=== PATIENT | male | born 1940 | race Caucasian/White ===

== ENCOUNTER → 2019-06-20 | Day surgery (SDC) | payer OTHER ==
[~2019-06-20] VITALS: Ht 180.3 cm; Wt 106.4 kg
[2019-06-20] VITALS (9 sets, daily range): BP systolic 124–155; BP diastolic 58–95
[~2019-06-20] MED LIST: ALFU10TA10 PO; AMLO5TAB PO; ASPI-611 PO; ATOR80TA PO; CHOL100017; FINA5TAB11 PO; FOLIC ACID PO; HYDROcodone/acetaminophen 10/325mg tab PO PRN; HYDROcodone/acetaminophen 5mg/325mg tablet PO PRN; LIDOcaine 1% (10mg/ml)w/preservative injection 20ml MDV ONE; LINA5TAB4 PO; LORazepam 0.5 MG tablet PO PRN; LOSA100T57 PO; METF750T46 PO; METH2.5T PO; METO50TA7 PO; diphenhydrAMINE 25mg capsule PO PRN; fentaNYL/PF 50MCG/1 ML 2ML syringe ONE; hydrALAZINE 20mg/ml inj. IV ONE; iohexol 350MG/ML 100ml bottle IV ONE; midazolam 2 mg/2 ml injection ONE; normal saline 1,000 ML IV SCH; normal saline 1000ml 1,000 ML IV SCH
--- NOTE | 2019-06-20 20:10 | NUR ---
Received bedside report from DARIAN Masterson quality control lab technician nurse. Patient VS stable. Right groin Cath site dressing clean and dry. no hematoma. dorsalis pedal pulses equal and strong bilaterally Patients at bedside with all known belongings. Will continue to monitor.
--- NOTE | 2019-06-20 22:45 | NUR ---
Patient was discharged. IV removed, tip intact, Patient tolerated well. Patient transported via wheel chair to Private motor vehicle driven by his . Went over discharge instructions with patient and his , All questions answered. VS stable. Right groin site dressing is clean dry and intact, no hematoma. Dorsal pedal pulses equal and strong bilaterally.
== END | disposition home or self-care (01) ==
LOC: SSTAY O 12:57
PROVIDERS: ATTEND Internal Medicine Interventional Cardiology
DX: R07.9 Chest pain, unspecified (principal); I25.10 Atherosclerotic heart disease of native coronary artery without angina pectoris; I48.91 Unspecified atrial fibrillation; E11.22 Type 2 diabetes mellitus with diabetic chronic kidney disease; I12.9 Hypertensive chronic kidney disease with stage 1 through stage 4 chronic kidney disease, or unspecified chronic kidney disease; N18.9 Chronic kidney disease, unspecified; E78.5 Hyperlipidemia, unspecified; I48.0 Paroxysmal atrial fibrillation; I25.2 Old myocardial infarction; E66.9 Obesity, unspecified; Z68.32 Body mass index [BMI] 32.0-32.9, adult; Z95.5 Presence of coronary angioplasty implant and graft; Z85.528 Personal history of other malignant neoplasm of kidney; Z88.8 Allergy status to other drugs, medicaments and biological substances
CPT/HCPCS: 82948; 93005; 93458; 99152; 99153; C1769; J0360; J1644; J2001; J2250; J3010; J7030; Q0163; Q9967; A4620; A6258; C1760

== ENCOUNTER 2024-08-02 06:53 | Day surgery (SDC) | payer OTHER ==
[~2024-08-02] VITALS: Ht 180.3 cm; Wt 108.7 kg
[2024-08-02] VITALS (7 sets, daily range): BP systolic 138–150; BP diastolic 75–102; PULSE 53–77; RESP 12–15; TEMP 98.5; O2SAT 92–96
[~2024-08-02 06:53] MED LIST changes: -ALFU10TA10 PO; +ALFU10TA47 PO; +ATOR-429 PO; -ATOR80TA PO; -HYDROcodone/acetaminophen 10/325mg tab PO PRN; -HYDROcodone/acetaminophen 5mg/325mg tablet PO PRN; -LIDOcaine 1% (10mg/ml)w/preservative injection 20ml MDV ONE; -LORazepam 0.5 MG tablet PO PRN; -LOSA100T57 PO; +LOSA100T58 PO; -diphenhydrAMINE 25mg capsule PO PRN; -fentaNYL/PF 50MCG/1 ML 2ML syringe ONE; -hydrALAZINE 20mg/ml inj. IV ONE; -iohexol 350MG/ML 100ml bottle IV ONE; -midazolam 2 mg/2 ml injection ONE; -normal saline 1,000 ML IV SCH; -normal saline 1000ml 1,000 ML IV SCH
[2024-08-02] MEDS ORDERED: GABA-530 PO (07:46)
[2024-08-02] MEDS ORDERED: AMI200T PO (07:46)
[2024-08-02] MEDS ORDERED: insulin SUBCUT (07:46)
[2024-08-02] MEDS ORDERED: ASPI-1265 PO (07:46)
[2024-08-02] MEDS ORDERED: AMLO10TA5 PO (07:46)
[2024-08-02] MEDS ORDERED: EMPA1TAB7 PO (07:46)
[2024-08-02] MEDS ORDERED: LEVO50TA PO (07:46)
[2024-08-02] MEDS ORDERED: CYAN500T71 PO (07:46)
[2024-08-02] MEDS ORDERED: FLO0.4C PO (07:46)
[2024-08-02] MEDS ORDERED: ROSU10TA72 PO (07:46)
[2024-08-02] MEDS ORDERED: CARV-49 PO (07:46)
[2024-08-02] MEDS ORDERED: TELM80TA9 PO (07:46)
[2024-08-02] MEDS: normal saline 1,000 ML IV SCH (08:14)
[2024-08-02] MEDS: diphenhydrAMINE 25mg capsule PO PRN (08:14)
[2024-08-02] MEDS: LORazepam 0.5 MG tablet PO PRN (08:14)
[2024-08-02] MEDS ORDERED: LIDOcaine 1% (10mg/ml) 2ml vial ONE (09:24)
[2024-08-02] MEDS ORDERED: verapamil 2.5 mg/ml inj IV ONE (09:25)
[2024-08-02] MEDS ORDERED: heparin 1,000unit/ml 10ml vial 10 ML ONE (09:25)
[2024-08-02] MEDS ORDERED: midazolam 1 mg/ML 2ml injection ONE (09:25)
[2024-08-02] MEDS ORDERED: fentaNYL/PF 50MCG/1 ML 2ML syringe ONE (09:25)
[2024-08-02] MEDS ORDERED: iohexol 350MG/ML 100ml bottle IV ONE (09:25)
[2024-08-02] MEDS ORDERED: DOBUTamine-DoBUTrex 500mg/D5W 250 ML IV ONE (09:27)
[2024-08-02] MEDS ORDERED: nitroGLYCERIN 500mcg/5mL D5W 5 ML IV ONE (09:52)
[2024-08-02] MEDS ORDERED: LIDOcaine 1% 30ml preserv. free vial ONE (09:57)
[2024-08-02] MEDS ORDERED: HYDROcodone/acetaminophen 10/325mg tab PO PRN (11:55)
[2024-08-02] MEDS ORDERED: HYDROcodone/acetaminophen 5mg/325mg tablet PO PRN (11:55)
[2024-08-03 11:41] LABS: ISTAT HGB MIX 13.9 g/dl (14.0-17.9); ISTAT Hct MIX 41 %PCV (42-52); ISTAT O2 SATURATION MIX VENOUS 89 % (60-80); ISTAT SOURCE BLNK
[2024-08-03 11:43] LABS: ISTAT HGB MIX 14.6 g/dl (14.0-17.9); ISTAT Hct MIX 43 %PCV (42-52); ISTAT O2 SATURATION MIX VENOUS 58 % (60-80); ISTAT SOURCE BLNK
== END 2024-08-02 13:00 | disposition home or self-care (01) ==
LOC: SSTAY O 06:53
PROVIDERS: ATTEND Internal Medicine Interventional Cardiology
DX: I35.0 Nonrheumatic aortic (valve) stenosis (principal); I25.10 Atherosclerotic heart disease of native coronary artery without angina pectoris; E78.5 Hyperlipidemia, unspecified; E11.22 Type 2 diabetes mellitus with diabetic chronic kidney disease; I48.91 Unspecified atrial fibrillation; I71.40 Abdominal aortic aneurysm, without rupture, unspecified; Z79.899 Other long term (current) drug therapy; I12.9 Hypertensive chronic kidney disease with stage 1 through stage 4 chronic kidney disease, or unspecified chronic kidney disease; Z98.890 Other specified postprocedural states; M54.12 Radiculopathy, cervical region; Z88.8 Allergy status to other drugs, medicaments and biological substances
CPT/HCPCS: 82803; 85014; 93005; 93460; 99152; 99153; J1250; J1644; J2003; J2250; J3010; J3490; J7030; Q0163; Q9967; A6258; C1751; C1760; C1769; C1887; C1894

== ENCOUNTER 2024-09-01 09:36 | Outpatient (CLI) | payer OTHER ==
[~2024-09-01 09:36] MED LIST changes: -ALFU10TA47 PO; +AMI200T PO; +AMLO10TA5 PO; -AMLO5TAB PO; +ASPI-1265 PO; -ASPI-611 PO; -ATOR-429 PO; +CARV-49 PO; +CYAN500T71 PO; +EMPA1TAB7 PO; -FINA5TAB11 PO; +FLO0.4C PO; +GABA-530 PO; +IODIXANOL 320 MG/ML INFUS..BTL 100ML IV ONE; +LEVO50TA PO; -LINA5TAB4 PO; -LOSA100T58 PO; -METF750T46 PO; -METH2.5T PO; -METO50TA7 PO; +ROSU10TA72 PO; +TELM80TA9 PO; +insulin SUBCUT
[2024-09-01 10:21] LABS: BASOPHILS # (AUTO) 0.1 X10'3 (0-0.2); BASOPHILS % (AUTO) 1.1 % (0-1); EOSINOPHILS # (AUTO) 0.2 X10'3 (0-0.9); EOSINOPHILS % (AUTO) 3.2 % (0-6); HEMATOCRIT 44.7 % (42.0-52.0); HEMOGLOBIN 14.8 g/dl (14.0-17.9); MEAN CORPUSCULAR HEMOGLOBIN 29.5 PG (27.0-31.0); MEAN CORPUSCULAR HGB CONC 33.2 g/dL (33.0-36.5); MEAN CORPUSCULAR VOLUME 88.9 FL (78-98); MEAN PLATELET VOLUME 8.4 FL (7.4-10.4); MONOCYTES # (AUTO) 0.6 X10'3 (0-0.9); MONOCYTES % (AUTO) 9.4 % (2-12); NEUTROPHILS # (AUTO) 4.5 X10'3 (1.8-7.7); NEUTROPHILS % (AUTO) 70.3 % (42-75); PLATELET COUNT 215 X10'3 (140-440); RED BLOOD COUNT 5.03 X10'6 (4.70-6.10); RED CELL DISTRIBUTION WIDTH 14.1 % (11.5-14.5); WHITE BLOOD COUNT 6.4 X10'3 (4.5-11.0)
[2024-09-01 10:33] LABS: APTT 26 SECONDS (22-32); PROTHROMBIN TIME 10.6 SECONDS (9.0-12.0)
[2024-09-01 10:36] LABS: ALANINE AMINOTRANSFERASE 30 U/L (12-78); ALBUMIN 3.3 G/DL (3.4-5.0); ALBUMIN/GLOBULIN RATIO 0.8 (1.1-1.5); ALKALINE PHOSPHATASE 96 IU/L (46-116); ANION GAP 5 (8-16); ASPARTATE AMINO TRANSFERASE 18 U/L (10-37); BILIRUBIN,TOTAL 0.7 MG/DL (0.1-1.0); BLOOD UREA NITROGEN 18 MG/DL (7-18); BUN/CREATININE RATIO 14.1 (10.0-20.0); CALCIUM 8.6 MG/DL (8.5-10.1); CHLORIDE 107 MMOL/L (99-107); CREATININE 1.28 MG/DL (0.60-1.10); GLUCOSE 108 MG/DL (70-104); POTASSIUM 4.6 MMOL/L (3.5-5.1); SODIUM 143 MMOL/L (135-145); TOTAL CARBON DIOXIDE 31.2 MMOL/L (24-32); TOTAL PROTEIN 7.4 G/DL (6.4-8.2); eGFR 53 ML/MIN
[2024-09-01 10:46] LABS: PRO BRAIN NATRIURETIC PEPTIDE 708 PG/ML (0-450)
== END 2024-09-01 23:59 | disposition home or self-care (01) ==
LOC: RAD 09:36
PROVIDERS: ATTEND Internal Medicine Cardiovascular Disease
DX: I71.43 Infrarenal abdominal aortic aneurysm, without rupture (principal); I35.0 Nonrheumatic aortic (valve) stenosis; I51.7 Cardiomegaly; R91.1 Solitary pulmonary nodule; J98.11 Atelectasis; I70.292 Other atherosclerosis of native arteries of extremities, left leg; J98.4 Other disorders of lung; R06.02 Shortness of breath; N28.1 Cyst of kidney, acquired; I65.29 Occlusion and stenosis of unspecified carotid artery; Z98.890 Other specified postprocedural states
CPT/HCPCS: 36415; 71046; 71275; 74174; 75572; 80053; 83880; 85025; 85610; 85730; Q9967

== ENCOUNTER 2024-11-17 05:49 | Inpatient (IN) | payer OTHER ==
--- NOTE | 2024-11-10 10:34 | ELECTROCARDIOGRAPH REPORT ---
[facility] Test Date: 2024-11-10 Test Time: 10:31:54 Pat Name: JOEL ROYAL Department: PRE/OP CARDIOLOGY Room: Gender: M Mds Coordinator: LIZABETH : 1940 Requested By: ELEAZAR HEREDIA Order Number: [id number] Reading MD: Dr. ORLY Serrano Measurements Intervals [place] Rate: 52 P: 12 PA: 203 QRS: 8 QRSD: 113 T: 57 QT: 520 QTc: 484 Interpretive Statements Sinus bradycardia Incomplete left bundle branch block Borderline prolonged QT interval Electronically Signed On 11-15-2024 18:30:[address] ORLY Serrano Please click the below link to view image of tracing.
[2024-11-10 10:46] LABS: BILIRUBIN,URINE NEGATIVE (Neg); CLARITY,URINE CLEAR (Clear); COLOR,URINE YELLOW (Yellow); GLUCOSE, URINE >=1000 mg/dl (Neg); KETONES,URINE NEGATIVE (Neg); LEUKOCYTE ESTERASE ,URINE NEGATIVE (Neg); NITRITES, URINE NEGATIVE (Neg); OCCULT BLOOD,URINE NEGATIVE (Neg); PROTEIN,URINE NEGATIVE (Neg)
[2024-11-10 10:48] LABS: BASOPHILS # (AUTO) 0.1 X10'3 (0-0.2); BASOPHILS % (AUTO) 0.9 % (0-1); EOSINOPHILS # (AUTO) 0.2 X10'3 (0-0.9); EOSINOPHILS % (AUTO) 3.2 % (0-6); LYMPHOCYTES # (AUTO) 0.9 X10'3 (1.1-4.8); LYMPHOCYTES % (AUTO) 11.7 % (21-51); MEAN CORPUSCULAR HEMOGLOBIN 28.3 PG (27.0-31.0); MEAN CORPUSCULAR HGB CONC 32.5 g/dL (33.0-36.5); MEAN PLATELET VOLUME 8.5 FL (7.4-10.4); MONOCYTES # (AUTO) 0.6 X10'3 (0-0.9); MONOCYTES % (AUTO) 8.2 % (2-12); NEUTROPHILS # (AUTO) 5.6 X10'3 (1.8-7.7); PRE OP HEMOGLOBIN 14.9 g/dL (14.0-17.9); PRE OP PLATELET COUNT 222 X10'3 (140-440); PRE OP WHITE BLOOD COUNT 7.4 10'3 (4.8-10.8); RED BLOOD COUNT 5.28 X10'6 (4.70-6.10); RED CELL DISTRIBUTION WIDTH 14.4 % (11.5-14.5)
[2024-11-10 10:49] LABS: UA COLLECTION TYPE CLN CATCH MIDSTREAM
[2024-11-10 10:55] LABS: BACTERIA,URINE NONE SEEN /HPF (Neg); RBC,URINE 0-2 /HPF (0-2); SQUAMOUS EPITHELIAL CELL,UR FEW /LPF (FEW); WBC,URINE NONE SEEN /HPF (0-4)
[2024-11-10 11:10] LABS: ALBUMIN 3.4 G/DL (3.4-5.0); ALKALINE PHOSPHATASE 101 IU/L (46-116); BLOOD UREA NITROGEN 14 MG/DL (7-18); CALCIUM 8.5 MG/DL (8.5-10.1); CHLORIDE 104 MMOL/L (99-107); CREATININE 1.27 MG/DL (0.60-1.10); PRE OP ALT 37 U/L (30-65); PRE OP ANION GAP 3 (8-16); PRE OP AST 20 U/L (10-37); PRE OP BILIRUB, TOTAL 0.6 MG/DL (0.0-1.0); PRE OP GLUCOSE 145 MG/DL (70-104); PRE OP POTASSIUM 4.8 MMOL/L (3.4-5.1); PRE OP SODIUM 139 MMOL/L (135-145); PRO BRAIN NATRIURETIC PEPTIDE 616 PG/ML (0-450); TOTAL CARBON DIOXIDE 32.4 MMOL/L (24-32); TOTAL PROTEIN 6.8 G/DL (6.4-8.2); eGFR 54 ML/MIN
[2024-11-10 11:21] LABS: PRE OP PROTIME 10.5 SECONDS (9.0-12.0)
--- NOTE | 2024-11-10 11:29 | RADIOLOGY REPORT ---
DI CHEST,TWO VIEWS CLINICAL HISTORY: PREOP/pain COMPARISON: DI CHEST,TWO VIEWS on DOS: 09/01/24 TECHNIQUE: Frontal and lateral view of the chest was obtained FINDINGS: Lines and Tubes: None Lungs: No focal consolidation. Pleura: No effusion. No pneumothorax. Cardiomediastinal contours: Unremarkable Bones: No acute osseous abnormality. IMPRESSION: No acute cardiopulmonary disease.
[2024-11-10 11:43] LABS: HEMOGLOBIN A1C 6.8 % (4.5-6.2)
[2024-11-16] MEDS: DOCUMENT DATE & TIME OF BETA-BLOCKER PO ONE (20:00)
[2024-11-17] VITALS (22 sets, daily range): BP systolic 123–164; BP diastolic 60–85; PULSE 55–74; RESP 10–19; TEMP 97.3–98.3; O2SAT 92–98
[~2024-11-17] VITALS: Ht 180.3 cm; Wt 105.7 kg
[2024-11-17] MEDS: ceFAZolin 2gm in dextrose, iso 50 ML IV ONE (05:30)
[~2024-11-17 05:49] MED LIST changes: -CARV-49 PO; +CARV6.257 PO; -CHOL100017; +CHOL100017 PO; -FLO0.4C PO; -IODIXANOL 320 MG/ML INFUS..BTL 100ML IV ONE; +TAMS-55 PO; +TRAM50TA2 PO; +ondansetron/PF 4mg/2ml inj IV PRN
[2024-11-17] MEDS ORDERED: protamine sulfate 10mg/ml inj. ONE (06:17)
[2024-11-17] MEDS: aspirin 325mg tablet PO ONE (07:15)
[2024-11-17] MEDS: famotidine 20mg tablet PO ONE (07:15)
[2024-11-17] MEDS: VANCOMYCIN/H2O 1.5g/300mL PB 300 ML IV ONE (07:16)
[2024-11-17] MEDS: ringers solution, lacted 1,000 ML IV SCH ×2 (07:17→11:25)
[2024-11-17] MEDS ORDERED: LIDOcaine 1% (10mg/ml) 2ml vial ONE (07:47)
[2024-11-17] MEDS ORDERED: heparin 1,000 UNITS/NS 500ml 1,500 ML ONE (07:48)
[2024-11-17] MEDS ORDERED: LIDOcaine 1% 30ml preserv. free vial ONE (07:48)
[2024-11-17] MEDS ORDERED: iohexol 350MG/ML 100ml bottle IV ONE (07:48)
[2024-11-17] MEDS ORDERED: magnesium sulf 1 GM/2 ML ONE (08:00)
[2024-11-17] MEDS ORDERED: sevoflurane 250ml liquid IH ONE (09:04)
[2024-11-17] MEDS ORDERED: fentaNYL/PF 50MCG/1 ML 2ML syringe ONE (09:08)
[2024-11-17] MEDS ORDERED: traMADol 50MG tablet PO PRN (09:20)
[2024-11-17] MEDS ORDERED: heparin 1,000unit/ml 10ml vial 10 ML ONE (09:26)
[2024-11-17] MEDS ORDERED: propofol inj 20 ML IV ONE (09:26)
[2024-11-17] MEDS ORDERED: LIDOcaine 1%/PF 5ML 10 MG/ML VIAL ONE ×2 (10:24)
[2024-11-17] MEDS ORDERED: magnesium sulf-water 2g/50mL 50 ML IV PRN (10:25)
[2024-11-17] MEDS ORDERED: ALPRAZolam 0.25mg tablet PO PRN (10:25)
[2024-11-17] MEDS ORDERED: potassium Cl 20mEq/100mL bag 100 ML IV PRN (10:25)
[2024-11-17] MEDS ORDERED: proCHLORperazine 10 MG/2 ml inj IV PRN (10:25)
[2024-11-17] MEDS ORDERED: docusate sod 100mg capsule PO PRN (10:25)
[2024-11-17] MEDS ORDERED: pantoprazole 40mg Tablet.DR PO PRN (10:25)
[2024-11-17] MEDS ORDERED: DEXTROSE 15 GM of carb/4 tabs (each vial/BOTTLE has 4 tablets) PO PRN ×2 (10:25)
[2024-11-17] MEDS ORDERED: diphenhydrAMINE 25mg capsule PO PRN (10:25)
[2024-11-17] MEDS ORDERED: dextrose 50%-water 50ml dispensing syringe IV PRN ×2 (10:25)
[2024-11-17] MEDS ORDERED: labetalol 20mg/4ml (5mg/ml) syringe IV PRN ×2 (10:25→11:25)
[2024-11-17] MEDS ORDERED: magnesium sulf-water 4G/100mL 100 ML IV PRN (10:25)
[2024-11-17] MEDS ORDERED: acetaminophen 325mg tablet PO PRN (10:25)
[2024-11-17] MEDS ORDERED: potassium Cl 40MEQ/1/2NS 520ml 520 ML IV PRN (10:25)
[2024-11-17] MEDS ORDERED: potassium Cl 20 mEq SR tablet PO PRN (10:25)
[2024-11-17] MEDS ORDERED: potassium Cl 40MEQ/270ML bag 250 ML IV PRN (10:25)
[2024-11-17] MEDS ORDERED: ondansetron/PF 4mg/2ml inj IV PRN ×2 (10:25→11:25)
[2024-11-17] MEDS ORDERED: glucagon, human recombinant 1mg kit SUBCUT PRN (10:25)
[2024-11-17] MEDS ORDERED: HYDROcodone/acetaminophen 5mg/325mg tablet PO PRN (10:25)
[2024-11-17] MEDS ORDERED: potassium CL 10mEq/100ml bag 100 ML IV PRN (10:25)
--- NOTE | 2024-11-17 10:32 | OPERATIVE REPORT ---
Operative Report Providers to CC CC: FRANKIE IBARRA MD ~ Date of Procedure: Nov 17, 2024 Pre-Operative Diagnosis: Severe, low-flow low gradient Post-Operative Diagnosis SAME as PRE-Op Procedure Performed 1. Ultrasound-guided access, bilateral femoral vessels. 2. Bilateral femoral angiography. 3. Ascending aortography. 4. Temporary transvenous pacer to the RV apex. 5. Placement of a 29 (+1)mm Segovia S3 Resilia valve. Surgeon: Carley Ibarra MD Manager Library MD Dr. Angel Lee MD Anesthesiologist: Zbigniew Aponte Type of Anesthesia: General Findings: Severe aortic stenosis Complications Ventricular Tachycardia s/p synchronized cardioversion x 2 Prosthetics\Implants used: Segovia 29 +1 mm S3 Resilia Estimated Blood Loss: Minimal Specimen Removed: None Description of Procedure: The patient was brought to the [employer] in a fasting state. They underwent MAC associated anesthesia. A left radial arterial line was placed. Ultrasound was used to guide access to the bilateral femoral vessels, 7-Bangladeshi sheath, right femoral artery, 6-Bangladeshi sheath, left femoral artery and vein. Bilateral femoral angiograms were obtained. Heparin was given to maintain an ACT over 250 seconds. Two crisscross Percloses were placed on the right. We upsized to an 8-Bangladeshi sheath. Two pigtail catheters placed in the ascending aorta. Ascending aortography done to determine the angle of deployment. Temporary transvenous pacer to the RV apex and confirmed capture. We upsized an 8-Bangladeshi sheath to a 16-Bangladeshi Segovia eSheath on the right. We crossed the aortic valve using a straight stiff exchange length Terumo wire supported by a 6-Bangladeshi AL1 catheter. LV AO pressures were recorded. A [employer] extra support wire was placed in the left ventricle. During testing of pacemaker, patient had sustained VT requiring synchronized cardioversion x 2. A 29 (+1) mm Segovia S3 Resilia valve was carlos manuel t to position and under rapid right ventricular pacing was deployed. Post- procedure, there was no AI and no residual . Guidewires and balloons were removed at this time. The temporary pacer was removed. The 16-Bangladeshi Segovia eSheath was removed and two crisscross Percloses tied with adequate hemostasis. The arterial sheath on the left was removed and a single Angioseal tied. The venous sheath on the left was removed and a single Angioseal used for hemostasis. Protamine was given to reverse the effects of heparin. The patient was stable post-procedure. Good pulses in the legs and no evidence of bleeding, transferred to the PACU in stable condition. HEMODYNAMICS: Pre: LV: 146/8 mmHg LVEDP: 14mmHg Ao: 131/59, MAP 86mmHg Post: LV: 114/9 mmHg LVEDP: 14 mmHg Ao: 114/51, MAP 73mmHg RESULTS: 1. Successful placement of a 29(+1) mm Segovia S3 Resilia valve, right transfemoral approach, two perclose devices. ASA 81mg QD 2. Diabetes: Diabetic Diet 3. Chronic Systolic Heart Failure: Resume GDMT 4. DM: RISS, Diabetic diet 5. PAD: Prior EVAR with coil embolization. They will be watched in the recovery area until stable, then transferred to telemetry at that time. CARLEY IBARRA MD Nov 17, 2024 10:32
[2024-11-17] MEDS: phenylephrine inj 50 MG in normal saline 250ml IV solN IV SCH (10:33)
[2024-11-17] MEDS: nitroPRUSSIDE (NIPRIDE) (200MCG/ML) 100ML Drip IV SCH (10:33)
--- NOTE | 2024-11-17 10:54 | ELECTROCARDIOGRAPH REPORT ---
[facility] Test Date: 2024-11-17 Test Time: 10:53:01 Pat Name: JOEL ROYAL Department: [facility] [place] Room: [place] [address] Gender: M Preparation Supervisor Canning: LIZABETH : 1940 Requested By: CARLEY EWING Order Number: [id number] Reading MD: Dr. ORLY Serrano Measurements Intervals [place] Rate: 54 P: 30 WI: 224 QRS: 51 QRSD: 151 T: 40 QT: 521 QTc: 494 Interpretive Statements Sinus bradycardia Prolonged WI interval Probable left ventricular hypertrophy Borderline prolonged QT interval Electronically Signed On 11-17-2024 19:32:[address] ORLY Serrano Please click the below link to view image of tracing.
[2024-11-17] MEDS: hydrALAZINE 20mg/ml inj. IV PRN (11:16)
[2024-11-17] MEDS ORDERED: morphine 4 MG/ML inj SYRINge IV PRN (11:25)
[2024-11-17] MEDS ORDERED: hydrALAZINE 20mg/ml inj. IV PRN (11:25)
[2024-11-17] MEDS ORDERED: morphine 2 MG/ML inj. syringe IV PRN (11:25)
[2024-11-17] MEDS ORDERED: HYDROmorphone/PF 0.2 MG/ML SYRINGE IV PRN ×2 (11:25)
[2024-11-17] MEDS ORDERED: INSULIN LISPRO 100 UNIT/ML INSULN.PEN MULTI-DOSE SQ SCH (12:00)
--- NOTE | 2024-11-17 14:19 | CARDIOLOGY REPORT ---
APPROVED REPORT EXAM: Focused, limited intraprocedural transthoracic 2D, spectral and color flow Doppler echocardiogr am during TAVR deployment. 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 / Surgeon: Aiden crum MD. / Device rep: Veronica GIBBONS ELS Previous echo: 05/23/27 [facility] EF: 45-50%; GERMAN 0.89; PKV: 2.58; GRAD: 25 / 18; LVOT: 2.30; VHD: mMR; trTR; mPI; NO AI; CATH: GRAD 28mmHG LEFT VENTRICLE Normal LV size with mildly reduced function. Mild concentric hypertrophy. LVEF is 50%. POST DEPLOYMEN T: 55%. RIGHT VENTRICLE RV is normal size and function. ATRIA Left atrium appears at least moderately dilated. AORTIC VALVE Probable trileaflet AV appears heavily calcified with significant stenosis demonstrated by reduced ex cursion and increased transvalvular and ascending aorta turbulance. GERMAN is measured at 0.98 cmsq. Pea k / mean gradients of 35 / 20 mmHG. Peak velocity is measured at 2.97 m/sec. No insufficiency. POST DEPLOYMENT (LOOP: 43 ) 29mm Segovia Ivis 3 Ultra Resilia bioprosthetic TAVR appears well seated wit h normal function. Trivial paravalvular leak present at 12 o'clock in TTE SAX BASE. GERMAN is measured a t 4.05 cmsq. Peak / mean gradients of 9 / 4 mmHG. Peak velocity is measured at 1.54 m/sec. MITRAL VALVE Mild MV annular calcification without stenosis. Trace regurgitation. TRICUSPID VALVE TV appears structurally normal with trace regurgitation. PULMONIC VALVE Normal PV without stenosis, physiologic insufficiency. GREAT VESSELS Aortic root is normal in size. Ascending aorta is normal in size. PERICARDIUM Normal pericardium. No effusion.
[2024-11-17] MEDS: ceFAZolin 1GM/D5W- ADD-VANTAGE 50 ML IV SCH (15:47)
[2024-11-17] MEDS: INSULIN LISPRO 100 UNIT/ML INSULN.PEN MULTI-DOSE SQ SCH ×2 (17:51→18:04)
[2024-11-17] MEDS: tamsulosin 0.4mg capsule PO SCH (17:52)
[2024-11-17] MEDS: amiodarone 200mg tablet PO SCH (17:52)
[2024-11-17] MEDS: normal saline 1000ml 1,000 ML IV SCH (17:52)
[2024-11-17] MEDS: sod chloride 0.9% 10ml flush syringe IV SCH (17:53)
[2024-11-17] MEDS: ROSUVASTATIN CALCIUM PO SCH (21:00)
[2024-11-17] MEDS: vancomycin/NS 1 GM ADD-VANTAGE 250 ML IV SCH (21:30)
[2024-11-17] MEDS: carvedilol 6.25mg tablet PO SCH (21:31)
[2024-11-17] MEDS: gabapentin 100mg capsule PO SCH (21:31)
[2024-11-18 02:00] VITALS: BP 153/50; PULSE 79; RESP 14; TEMP 97.8; O2SAT 92
[2024-11-18 06:00] VITALS: BP 153/73; PULSE 86; RESP 20; TEMP 97.7; O2SAT 95
[2024-11-18 06:28] LABS: BASOPHILS # (AUTO) 0.1 X10'3 (0-0.2); BASOPHILS % (AUTO) 1.2 % (0-1); EOSINOPHILS # (AUTO) 0.1 X10'3 (0-0.9); EOSINOPHILS % (AUTO) 0.6 % (0-6); HEMOGLOBIN 13.7 g/dl (14.0-17.9); LYMPHOCYTES # (AUTO) 0.9 X10'3 (1.1-4.8); LYMPHOCYTES % (AUTO) 10.2 % (21-51); MEAN CORPUSCULAR HEMOGLOBIN 28.9 PG (27.0-31.0); MEAN CORPUSCULAR HGB CONC 33.4 g/dL (33.0-36.5); MEAN CORPUSCULAR VOLUME 86.5 FL (78-98); MEAN PLATELET VOLUME 8.3 FL (7.4-10.4); MONOCYTES % (AUTO) 11.7 % (2-12); NEUTROPHILS # (AUTO) 6.4 X10'3 (1.8-7.7); NEUTROPHILS % (AUTO) 76.3 % (42-75); PLATELET COUNT 169 X10'3 (140-440); RED BLOOD COUNT 4.75 X10'6 (4.70-6.10); RED CELL DISTRIBUTION WIDTH 14.5 % (11.5-14.5); WHITE BLOOD COUNT 8.4 X10'3 (4.5-11.0)
--- NOTE | 2024-11-18 06:53 | RADIOLOGY REPORT ---
CHEST RADIOGRAPH Indication: s/p TAVR Technique: Single frontal view of the chest was obtained Comparison: 11/10/2024 FINDINGS: Lines and Tubes: None Lungs: No focal consolidation. Pleura: No effusion. No pneumothorax. Cardiomediastinal contours: Unremarkable Bones: No acute osseous abnormality. IMPRESSION: 1. No acute cardiopulmonary disease.
[2024-11-18 06:57] LABS: ALANINE AMINOTRANSFERASE 24 U/L (12-78); ALBUMIN 2.9 G/DL (3.4-5.0); ALBUMIN/GLOBULIN RATIO 0.9 (1.1-1.5); ALKALINE PHOSPHATASE 90 IU/L (46-116); ANION GAP 8 (8-16); ASPARTATE AMINO TRANSFERASE 18 U/L (10-37); BILIRUBIN,TOTAL 0.7 MG/DL (0.1-1.0); BLOOD UREA NITROGEN 11 MG/DL (7-18); BUN/CREATININE RATIO 9.6 (10.0-20.0); CHLORIDE 106 MMOL/L (99-107); CREATININE 1.15 MG/DL (0.60-1.10); GLUCOSE 128 MG/DL (70-104); MAGNESIUM 2.2 MG/DL (1.5-2.4); POTASSIUM 4.3 MMOL/L (3.5-5.1); PRO BRAIN NATRIURETIC PEPTIDE 1026 PG/ML (0-450); SODIUM 141 MMOL/L (135-145); TOTAL CARBON DIOXIDE 27.3 MMOL/L (24-32); TOTAL PROTEIN 6.1 G/DL (6.4-8.2); eCRCL 50 ML/MIN; eGFR 60 ML/MIN
--- NOTE | 2024-11-18 06:58 | ELECTROCARDIOGRAPH REPORT ---
[facility] Test Date: 2024-11-18 Test Time: 06:55:21 Pat Name: JOEL ROYAL Department: [facility] Room: [place] [address] A Gender: M Avionic Technician: : 1940 Requested By: CARLEY EWING Order Number: [id number] Reading MD: Dr. ORLY Serrano Measurements Intervals [place] Rate: 68 P: 38 ND: 226 QRS: 23 QRSD: 116 T: 102 QT: 464 QTc: 494 Interpretive Statements Sinus rhythm Prolonged ND interval Nonspecific intraventricular conduction delay Nonspecific repol abnormality, diffuse leads Electronically Signed On 11-18-2024 13:55:[address] ORLY Serrano Please click the below link to view image of tracing.
[2024-11-18] MEDS: aspirin 81mg tab.chew PO SCH (07:32)
[2024-11-18] MEDS: amLODIPine 5mg tablet PO SCH (07:32)
[2024-11-18] MEDS: levoTHYROXINE 75mcg tablet PO SCH (07:33)
[2024-11-18] MEDS: losartan 50mg tablet PO SCH (07:33)
[2024-11-18] MEDS: cyanocobalamin 500mcg tablet PO SCH (07:33)
[2024-11-18] MEDS ORDERED: aspirin 81mg tab.chew PO SCH (08:00)
[2024-11-18 10:00] VITALS: BP 152/67; PULSE 62; RESP 13; TEMP 98.2; O2SAT 91
--- NOTE | 2024-11-18 15:55 | DISCHARGE SUMMARY ---
Discharge Summary Providers to CC ~ Discharge Summary Admission Diagnosis: Severe, low-flow low gradient Hospital Course DATE OF ADMISSION: 11/17/24 DATE OF DISCHARGE: 11/18/24 Discharge Diagnosis\Comment: Severe aortic stenosis status post TAVR Diabetes mellitus Chronic systolic heart failure Peripheral artery disease Operations\Procedures: 1. Ultrasound-guided access, bilateral femoral vessels. 2. Bilateral femoral angiography. 3. Ascending aortography. 4. Temporary transvenous pacer to the RV apex. 5. Placement of a 29 (+1)mm Segovia S3 Resilia valve. Consultants: No consultants Complications: No complications Condition on DC: Stable Continued Medications: Amiodarone Hcl (Cordarone) 200 Mg Tablet 1 TAB PO WS for 30 Days, #30 TAB Amlodipine Besylate (Norvasc) 10 Mg Tablet 1 TAB PO DAILY for 30 Days, #30 TAB 0 Refills Aspirin (Aspirin) 81 Mg Tab.chew 1 TAB PO DAILY for 30 Days, #30 TAB Carvedilol (Carvedilol) 6.25 Mg Tablet 1 TAB PO Q12H Cholecalciferol (Vitamin D3) (Vitamin D3) 25 Mcg (1000 Unit) Tablet 1 TAB PO Sa weekly on thursday Cyanocobalamin* (Vitamin B-12*) 500 Mcg Tablet 2 TAB PO DAILY for 30 Days, #30 TAB Empagliflozin/Metformin HCl (Synjardy 12.5-1,000 mg Tablet) 12.5 Mg-1,000 Mg Tablet 2 TAB PO DAILY [Folic Acid] () 1 MG PO DAILY Gabapentin (Gabapentin) 100 Mg Capsule 3 CAP PO BID for 30 Days, #90 CAP 0 Refills [insulin] () 28 UNITS SUBCUT DAILY Levothyroxine Sodium (Synthroid) 50 Mcg Tablet 75 MCG PO DAILY for 30 Days, #30 TAB 0 Refills Rosuvastatin Calcium (Rosuvastatin Calcium) 10 Mg Tablet 2 TAB PO HS Tamsulosin Hcl* (Flomax*) 0.4 Mg Cap.sr.24h 1 CAP PO WS Telmisartan (Telmisartan) 80 Mg Tablet 1 TAB PO DAILY for 30 Days, #30 TAB 0 Refills Tramadol HCl (Tramadol HCl) 50 Mg Tablet 1 TAB PO TID PRN PRN for pain for 30 Days, #90 TAB Discharge Summary: This is an 84-year-old male who was found to have severe aortic stenosis. Presented yesterday, November 17 for planned TAVR. Underwent placement of a 29 mm plus one Segovia S3 resilient valve. Please see Dr. Belen Ibarra's dictation for further details on the procedure. Monitored overnight in the telemetry unit. Remained hemodynamically stable. Has been up and ambulatory. Postoperative testing was reviewed by Dr. Belen Patten. Patient was cleared for discharge. Physical exam prior to discharge: General: Awake, alert, oriented. No apparent distress Neck: Supple. Normal range of motion. No JVD Respiratory: Lungs are clear to auscultation bilaterally. No respiratory distress. Chest: Normal shape and size. No accessory muscle use. Cardiovascular: Regular rate and rhythm. S1-S2. No murmur, gallop, rub. Gastrointestinal: Abdomen is soft. Nontender to palpation. Bowel sounds present. Extremities: No lower extremity edema, cyanosis or clubbing. Bilateral femoral dressing sites with dressings clean dry and intact. No ecchymosis or swelling. No hematoma. Neurologic: Alert and oriented x4. Nonfocal Psychiatric: Normal mood and affect. Skin: Normal color. Warm and dry. Plan: Activity restrictions reviewed. Follow up as scheduled. All questions answered. *Problems/Diagnosis: (1) Chronic systolic heart failure (2) Diabetes (3) Peripheral artery disease (4) Aortic stenosis Total Time Spent on D/C: > 30 Minutes Counseling Services Smoking & Tobacco Cessation: N/A HORTENCIA BALDWIN NP Nov 18, 2024 15:55
[2024-11-19] MEDS ORDERED: cholecalciferol (vitamin D3) 1,000 unit (25mcg) tablet PO SCH (09:20)
--- NOTE | 2024-11-19 19:49 | CARDIOLOGY REPORT ---
APPROVED REPORT EXAM: Limited 2D, Doppler, and color-flow Echocardiogram. Patient Location: [facility] Heart Rate: 80 bpm Rhythm: NSR Indications ONE DAY FOLLOW-UP TAVR 29mmn Segovia Ivis 3 Ultra RESILIA Bioprosthetic TAVR PROFESSOR OF PSYCHIATRY: Becky Ibarra MD/ Interventionalist: Becky Ibarra MD and Syed Patten MD/ Surgeon: Aiden Dolan MD/ Device rep: Veronica GIBBONS ELS PREVIOUS ECHO: 11/17/2024 [facility] EF 55%; m [facility] mod LAE; 29mm Segovia Ivis 3 ultra bioprosthetic TAV R with normal function, trace paravalvular leak 12 o"clock position, GERMAN 4.05 cm2, peak/mean gradient s of 9/4 mmHg, peak velocity 1.54 m/sec; m MV annuluar calcification without stenosis, m MR tr TR, No pericardial effusion. 2D Dimensions LVOT Diameter 2.90 (1.8-2.4cm) M-Mode Dimensions Left Atrium(MM) 5.58 (2.5-4.0cm) Aortic Root 3.52 (2.2-3.7cm) Aortic Cusp Exc 1.97 (1.5-2.0cm) Aortic Valve AoV Peak Steve. 222.4 cm/s AoV VTI 45.9 cm AO Peak GR. 20.0 mmHg AO Mean GR. 10 mmHg LVOT VTI 27.46 cm LVOT Peak Steve. 131.6 cm/s GERMAN (VTI) 3.99 cm2 Tricuspid Valve TR P. Velocity 304 cm/s RAP ESTIMATE 5 mmHg TR Peak Gr. 37 mmHg RVSP 42 mmHg LEFT VENTRICLE Normal LV size and normal function. Mild concentric hypertrophy. LVEF is 55%. RIGHT VENTRICLE RV appears mildly dilated with normal contractility. RVSP is estimated at 42 mmHG. ATRIA Left atrium is moderately dilated. Right atrium is borderline dilated. AORTIC VALVE 29 mm Segovia Ivis 3 Ultra Resilia bioprosthetic TAVR appears well seated with normal function. No paravalvular leaks noted. GERMAN is measured at 3.99 cmsq. Peak/mean gradients of 20/10 mmHG. Peak veloc ity is measured at 2.22 m/sec. No paravalvular leaks noted MITRAL VALVE The mitral valve is normal in structure with mild annular thickening. Mild miltral regurgittion. TRICUSPID VALVE The tricuspid valve is normal in structure. Mild tricuspid regurgitation. PERICARDIUM Normal pericardium. No effusion. Conclusion Normal LV size and normal function. Mild concentric hypertrophy. LVEF is 55%. RV appears mildly dilated with normal contractility. RVSP is estimated at 42 mmHG. Left atrium is moderately dilated. Right atrium is borderline dilated. 29 mm Segovia Ivis 3 Ultra Resilia bioprosthetic TAVR appears well seated with normal function. No paravalvular leaks noted. GERMAN is measured at 3.99 cmsq. Peak/mean gradients of 20/10 mmHG. Peak steve ocity is measured at 2.22 m/sec. No paravalvular leaks noted The mitral valve is normal in structure with mild annular thickening. Mild miltral regurgittion. The tricuspid valve is normal in structure. Mild tricuspid regurgitation. Normal pericardium. No effusion.
== END 2024-11-18 15:14 | disposition home or self-care (01) | DRG 267 ==
LOC: PAS IN 05:49 → PCU 3S 16:59
PROVIDERS: ADMIT Internal Medicine Cardiovascular Disease; ATTEND Internal Medicine Cardiovascular Disease
PROC: 03HY32Z Insertion of Monitoring Device into Upper Artery, Percutaneous Approach (ICD-10-PCS; 2024-11-17)
PROC: B41D1ZZ Fluoroscopy of Aorta and Bilateral Lower Extremity Arteries using Low Osmolar Contrast (ICD-10-PCS; 2024-11-17)
PROC: 5A2204Z Restoration of Cardiac Rhythm, Single (ICD-10-PCS; 2024-11-17)
PROC: 02RF38Z Replacement of Aortic Valve with Zooplastic Tissue, Percutaneous Approach (ICD-10-PCS; principal; 2024-11-17 09:04)
DX: I35.0 Nonrheumatic aortic (valve) stenosis (principal); Z00.6 Encounter for examination for normal comparison and control in clinical research program; I47.20 Ventricular tachycardia, unspecified; I50.22 Chronic systolic (congestive) heart failure; E11.51 Type 2 diabetes mellitus with diabetic peripheral angiopathy without gangrene; Z88.8 Allergy status to other drugs, medicaments and biological substances
CPT/HCPCS: 33361; 36415; 71045; 71046; 76937; 80053; 81001; 82948; 83036; 83735; 83880; 84443; 85025; 85347; 85610; 85730; 86885; 86900; 86901; 86920; 87081; 93005; 93308; A4615; A4618; A6258; A6402; A6449; C1756; C1758; C1769; C1894; G0378; J0360; J0690; J1644; J1815; J2003; J2371; J2405; J2704; J2720; J3010; J3370; J3372; J3475; J3490; J7030; J7040; J7050; J7120; Q9967